=== PATIENT | male | born 2005 | race Caucasian/White ===

== ENCOUNTER 2025-01-08 19:21 | Emergency (ER) | payer MEDICAID ==
[2025-01-08] MEDS: Diphtheria,Pertussis(Acell),Tetanus Vaccine 0.5 ML Syringe IM ONE (20:04)
== END 2025-01-08 20:12 | disposition home or self-care (01) ==
LOC: JP.ED 19:21
DX: S61.250A Open bite of right index finger without damage to nail, initial encounter (principal); F17.200 Nicotine dependence, unspecified, uncomplicated; Z23 Encounter for immunization; W55.01XA Bitten by cat, initial encounter
CPT/HCPCS: 12001; 90471; 90715; 99283-25